=== PATIENT | female | born 1965 | race Caucasian/White ===

== ENCOUNTER 2022-12-21 11:21 | Emergency (ER) | payer SELFPAY ==
[~2022-12-21] VITALS: Ht 157.5 cm; Wt 87.2 kg
[2022-12-21] MEDS ORDERED: TRAZODONE HCL50 MG (11:41)
[2022-12-21] MEDS ORDERED: LEVOTHYROXINE100 MC2 (11:41)
[2022-12-21] MEDS ORDERED: IMITREX50 MG PO (13:47)
[2022-12-21] MEDS ORDERED: PREDNISONE20 MG PO (13:47)
[2022-12-21 14:05] VITALS: BP 133/83
== END 2022-12-21 14:06 | disposition home or self-care (01) ==
LOC: ED 11:21
DX: G43.909 Migraine, unspecified, not intractable, without status migrainosus (principal); M72.2 Plantar fascial fibromatosis; Z79.899 Other long term (current) drug therapy; Z79.890 Hormone replacement therapy
CPT/HCPCS: J3030; J7030